=== PATIENT | female | born 1950 | race Caucasian/White ===

== ENCOUNTER 2022-01-22 15:28 | Emergency (ER) | payer MEDICARE ==
[~2022-01-22] VITALS: Ht 165 cm; Wt 137.0 kg
--- NOTE | 2022-01-22 15:55 | ED EENT ---
History of Present Illness General Chief Complaint: Facial Problems Stated Complaint: R SIDE FACIAL SWELLING Nursing Triage Note: RIGHT LOWER SIDE FACIAL SWELLING. PT REPORTS SHE NOTICED IT YESTERDAY AND REPORTS IT IS TENDER TO TOUCH. DENIES ANY PAIN OTHERWISE. Source: patient Exam Limitations: no limitations History of Present Illness Date Seen by Provider: Jan 22, 2022 Time Seen by Provider: 15:25 Initial Comments Patient is a 71-year-old female presents with right buccal and submandibular swelling starting yesterday. Denies pain tenderness. No fever chills or sweats. No other acute symptoms or complaints Timing/Duration: gradual Location: facial Prearrival Treatment: other Modifying Factors: Improves With Other Associated Symptoms: other Allergies and Home Medications Patient Home Medication List Home Medication List Reviewed: Yes Review of Systems Review of Systems Constitutional: see HPI Mouth: see HPI Past Alqhjkp-Moqmbq-Sigvmc Hx Patient Social History Tobacco Use?: No Use of E-Cig and/or Vaping dev: No Substance use?: No Alcohol Use?: No Immunizations Up To Date Influenza Vaccine Up-to-Date: No; Not Current First/Initial COVID19 Vaccinat: 2020 Second COVID19 Vaccination Roberto: 2020 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 oz. kg; 50.00 BMI Method: General Appearance: WD/WN, no apparent distress Eyes: bilateral eye normal inspection, bilateral eye PERRL Ears: bilateral ear auricle normal, bilateral ear canal normal Nose: normal inspection Mouth/Throat: other (Right buccal and submandibular swelling, mild, tenderness or gingival swelling erythema, tenderness or fluctuance. Dental caries following right posterior lower molar) Progress/Results/Core Measures Results/Orders Vital Signs/I&O 01/22/22 15:36 Temp 36.4 Pulse 72 Resp 18 B/P (MAP) 178/103 (128) Pulse Ox 97 Blood Pressure Mean: 128 Departure Communication (PCP) Mild facial swelling only with possible dental caries. Will start on clindamycin with instructions follow-up with PCP next week Impression Primary Impression: Facial swelling Additional Impression: Dental caries Disposition: 01 HOME, SELF-CARE Condition: Stable Departure-Patient Inst. Decision time for Depature: 15:54 Referrals: HERO GARCIA MD (PCP/Family) Primary Care Physician Add. Discharge Instructions: You were evaluated in the emergency department for right-sided facial swelling. The cause of your symptoms has not been determined but may be related to dental infection. Please take ibuprofen 3 times daily and clindamycin as directed. Follow-up with your PCP in 3 to 5 days for reevaluation. All discharge instructions reviewed with patient and/or family. Voiced understanding. Scripts Clindamycin HCl (Clindamycin HCl) 300 Mg Capsule 300 MG PO TID, #30 CAP Prov: GEOFF POLANCO DO 01/22/22 GEOFF POLANCO DO Jan 22, 2022 15:55
[2022-01-22] MEDS ORDERED: CLIN-144 PO (15:56)
[2022-01-22 15:59] VITALS: BP 178/103
== END 2022-01-22 16:07 | disposition home or self-care (01) ==
LOC: ER FS 15:31
DX: K02.9 Dental caries, unspecified (principal)
CPT/HCPCS: 99281